=== PATIENT | female | born 1940 | race Caucasian/White ===

== ENCOUNTER 2020-11-25 08:16 | Emergency (ER) | payer MEDICARE, OTHER ==
[~2020-11-25] VITALS: Ht 154.9 cm; Wt 50.5 kg
[2020-11-25] MEDS ORDERED: oxymetazoline 15 ML nasal spray NS ONE (08:35)
[2020-11-25 08:43] VITALS: BP 153/87
== END 2020-11-25 10:53 | disposition home or self-care (01) ==
LOC: ER 08:17
DX: R04.0 Epistaxis (principal); I10 Essential (primary) hypertension; Z86.73 Personal history of transient ischemic attack (TIA), and cerebral infarction without residual deficits; Z88.8 Allergy status to other drugs, medicaments and biological substances
CPT/HCPCS: 99282

== ENCOUNTER 2024-06-25 02:21 | Emergency (ER) | payer MEDICARE, OTHER ==
[~2024-06-25] VITALS: Ht 154.9 cm; Wt 50.9 kg
[2024-06-25 04:20] LABS: BASOPHILS # (AUTO) 0.1 X10'3 (0-0.2); EOSINOPHILS # (AUTO) 0.3 X10'3 (0-0.9); HEMATOCRIT 41.4 % (35.0-45.0); HEMOGLOBIN 14.1 g/dl (12.0-16.0); LYMPHOCYTES # (AUTO) 2.1 X10'3 (1.1-4.8); LYMPHOCYTES % (AUTO) 24.8 % (21-51); MEAN CORPUSCULAR HEMOGLOBIN 30.8 PG (27.0-31.0); MEAN CORPUSCULAR VOLUME 90.8 FL (78-98); MEAN PLATELET VOLUME 7.8 FL (7.4-10.4); MONOCYTES # (AUTO) 0.8 X10'3 (0-0.9); MONOCYTES % (AUTO) 9.7 % (2-12); NEUTROPHILS # (AUTO) 5.3 X10'3 (1.8-7.7); NEUTROPHILS % (AUTO) 61.5 % (42-75); PLATELET COUNT 178 X10'3 (140-440); RED BLOOD COUNT 4.56 X10'6 (4.20-5.60); RED CELL DISTRIBUTION WIDTH 13.7 % (11.5-14.5); WHITE BLOOD COUNT 8.6 X10'3 (4.5-11.0)
[2024-06-25 04:24] LABS: ALBUMIN 3.7 G/DL (3.4-5.0); ANION GAP 7 (8-16); BLOOD UREA NITROGEN 21 MG/DL (7-18); BUN/CREATININE RATIO 35.6 (10.0-20.0); CALCIUM 9.5 MG/DL (8.5-10.1); CHLORIDE 106 MMOL/L (99-107); CREATININE 0.59 MG/DL (0.40-0.90); D-DIMER 1.56 MG/L FEU (0-0.50); GLUCOSE 96 MG/DL (70-104); POTASSIUM 3.9 MMOL/L (3.5-5.1); SODIUM 142 MMOL/L (135-145); TOTAL CARBON DIOXIDE 29.2 MMOL/L (24-32); eCRCL 53 ML/MIN; eGFR > 90 ML/MIN
[2024-06-25] MEDS ORDERED: CEPH-585 PO (06:07)
[2024-06-25 06:17] VITALS: BP 147/59; PULSE 60; RESP 16; TEMP 97.8; O2SAT 97
== END 2024-06-25 06:22 | disposition home or self-care (01) ==
LOC: ER 06:04
DX: M79.605 Pain in left leg (principal); Z88.5 Allergy status to narcotic agent
CPT/HCPCS: 36415; 80048; 84145; 85025; 85379; 93971; 99284

== ENCOUNTER 2025-03-12 06:16 | Emergency (ER) | payer MEDICARE, OTHER ==
[~2025-03-12] VITALS: Ht 154.9 cm; Wt 50.6 kg
--- NOTE | 2025-03-12 06:35 | Physician Documentation ---
History of Present Illness ~ Chief Complaint: Vomiting Stated Complaint: VOMITING Time Seen by MD: 06:34 HPI 85-year-old female who presents with right shoulder pain and an episode of vomiting She tells me that she had a fall couple of days ago, landing on her left side. She denies any significant injuries other than some mild bruising. Then yesterday she developed pain in her right shoulder. She states it is located in the lateral shoulder and it is hard to raise her arm up over her head. She can raise it up if she uses her left arm. She noticed some bruises over her shoulder. She does not remember falling on it. Last night she was extremely anxious about this. When she woke up this morning she tried to eat breakfast. She then had 1 episode of vomiting. Her states he was concerned she may be having a heart attack or a stroke. He gave her aspirin. Currently she denies any abdominal pain or nausea. She denies having any chest pain or shortness of breath. She denies having a new headache or other neurologic changes. Medication Reconciliation Allergies: Coded Allergies: tramadol (Unverified Allergy, Unknown, 03/12/25) Review of Systems Constitutional: Denies: fever Cardiovascular: Denies: chest pain Gastrointestinal: Reports: nausea, vomiting; Denies: abdominal pain Musculoskeletal: Reports: joint pain Physical Exam Vital Signs: Temperature: 97.8, Source: Temporal, Heart Rate: 73, Respiratory Rate: 18, BP: 156/55, Pulse Oximetry: 97, Weight: 50.600 Physical Exam General: This is a pleasant and mildly anxious appearing elderly woman, at bedside HEENT: Atraumatic, oropharynx is moist Heart: Regular rate and rhythm, no murmur, normal-appearing peripheral perfusion including normal left radial pulse Lungs: Clear breath sounds bilateral, normal work of breathing, normal oxygen saturation on room air Abdomen: Soft, nondistended, nontender all quadrants Extremities: Warm and well-perfused Right upper extremity: The patient has bruising over the anterior lateral shoulder and right bicep region. She has focal tenderness to palpation in the area of bruising only. Otherwise no focal bony point tenderness on palpation of the bones of the shoulder or elbow. She has pain with active shoulder raise, but I am able to raise her shoulder with passive movement without significant pain or limitation. Neuro: Alert and oriented Psychiatric: Appears mildly anxious but is cooperative with exam Progress Results/Orders Results/Orders Orders - ROLF GOLDSMITH MD Shoulder, Complete (Min 2 Vws) (03/12/25 06:24) Completed Orders - ROLF GOLDSMITH MD Cbc/Diff (03/12/25 06:24) Lipase (03/12/25 06:24) CMP (03/12/25 06:24) Shoulder, Complete (Min 2 Vws) (03/12/25 06:24) Hs Troponin I W Calculations (03/12/25 06:50) Lidocaine 5% Patch (Lidoderm 5% Patch) (03/12/25 06:50) Electrocardiogram (03/12/25 06:57) Medications Received in ER Medications (Trade) Dose Ordered Sig/Beck Route PRN Reason Start Time Stop Time Status Last Admin Dose Admin (Lidoderm 5% Patch) 1 patch ONCE ONCE TP 03/12/25 06:50 03/12/25 06:51 DC 03/12/25 07:02 1 PATCH Vital Signs 03/12/25 03/12/25 03/12/25 03/12/25 06:22 07:03 07:45 09:06 Temp 97.8 97.8 Pulse 73 59 57 63 Resp 18 19 17 15 B/P (MAP) 156/55 144/68 (93) 130/65 (86) 132/66 Pulse Ox 97 94 94 95 O2 Flow Rate 0 0 Laboratory Tests Test 03/12/25 07:05 White Blood Count 10.5 Red Blood Count 4.24 Hemoglobin 12.7 Hematocrit 37.5 Mean Corpuscular Volume 88.6 Mean Corpuscular Hemoglobin 30.0 Mean Corpuscular Hemoglobin Concent 33.9 Red Cell Distribution Width 13.8 Platelet Count 183 Mean Platelet Volume 7.9 Neutrophils (%) (Auto) 76.5 H Lymphocytes (%) (Auto) 11.3 L Monocytes (%) (Auto) 9.8 Eosinophils (%) (Auto) 1.7 Basophils (%) (Auto) 0.7 Neutrophils # (Auto) 8.0 H Lymphocytes # (Auto) 1.2 Monocytes # (Auto) 1.0 H Eosinophils # (Auto) 0.2 Basophils # (Auto) 0.1 CBC Comment Sodium Level 137 Potassium Level 3.5 Chloride Level 103 Carbon Dioxide Level 28.4 Anion Gap 6 L Blood Urea Nitrogen 14 Creatinine 0.60 Estimated GFR/1.73 m2 > 90 BUN/Creatinine Ratio 23.3 H Glucose Level 110 H Calcium Level 9.2 Total Bilirubin 1.3 H Aspartate Amino Transf (AST/SGOT) 20 Alanine Aminotransferase (ALT/SGPT) 18 Alkaline Phosphatase 88 Troponin I High Sensitivity 10 Total Protein 7.1 Albumin 3.2 L Globulin 3.9 Albumin/Globulin Ratio 0.8 L Lipase 30 Chemistry Comments EKG/XRAY/CT/US/VASC/MRI EKG : Additional Comment I personally interpreted the EKG and this shows: Sinus rhythm, rate 60, QTC 450, no STEMI or significant ischemic changes Bone/Soft Tissue X-Ray (Ext.) : Additional Comment I personally interpreted the x-ray, and it shows: No fracture or dislocation to the shoulder, no clavicle fracture Medical Decision Making Diff Dx GI Bleed:Consideration: Unlikely: AE fistula, Angiodysplasia, Bleeding diathesis, Blood loss anemia, Carcinoma, Diverticulosis, Diverticulitis, Esophageal varicies, Esophagitis, Gastritis, Gastroenteritis, Inflammatory BD, Suzi-Collins syndrome, Meckel's diverticulum, PUD, Other Diff Dx Pain:Considerations: Include: Angina/SC, Bowel obstruction Diff Dx N/V/D:Considerations: Include: Dehydration, Electrolyte imbalance, Food poisoning, Gastroenteritis Diff Dx Rectal:Considerations: Unlikely: Fissure, Fistula, Foreign body, Impaction, Perirectal abscess, Rectal prolapse, Subcutaneous abscess, Thrombosed hemorrhoid, Ulcer, UTI, Other Additional Comments The patient presents with bruising and pain to her right shoulder after a fall a couple of days ago, as well as 1 episode of vomiting. Here in the ED, she has findings consistent with bruising to her arm. She has a benign abdominal exam. No infectious symptoms. She already took aspirin, and can not take Tylenol. She was given a lidocaine patch and ice. X-ray of the shoulder shows no fractu re. Labs were unremarkable, no evidence to suggest heart attack, stroke or other dangerous process. While observed here she had no further vomiting or other symptoms. Overall, her presentation seems likely triggered by stress related to the pain and bruising of her shoulder. She will be discharged with symptomatic treatment and return precautions. Departure Time of Disposition: 08:52 Disposition: 01 HOME / SELF CARE / HOMELESS Impression: Primary Impression: Contusion, shoulder /upper arm Additional Impression: Vomiting Condition: Improved Discharge Instructions: Contusion Referrals: NO PRIMARY CARE PROVIDER (PCP) Education Educated: Patient, Family Educated regarding: diagnosis, treatment, need for follow up Signature Scribe Signature: na Attestation: ROLF Hand MD Mar 12, 2025 06:35
--- NOTE | 2025-03-12 06:52 | RADIOLOGY REPORT ---
PROCEDURE: Right shoulder radiographs. INDICATION: Shoulder Pain RT. TECHNIQUE: 2 views of the right shoulder were obtained. COMPARISON: None FINDINGS: There is no evidence of fracture or dislocation. Acromioclavicular joint space is narrowed. Glenohumeral joint space is also narrowed. IMPRESSION: 1. Degenerative changes of the right shoulder without acute osseous abnormality.
[2025-03-12 07:25] LABS: MEAN PLATELET VOLUME 7.9 FL (7.4-10.4); RED CELL DISTRIBUTION WIDTH 13.8 % (11.5-14.5)
[2025-03-12 07:38] LABS: CREATININE 0.60 MG/DL (0.40-0.90); TOTAL CARBON DIOXIDE 28.4 MMOL/L (24-32); eCRCL 51 ML/MIN; eGFR > 90 ML/MIN
[2025-03-12 07:45] VITALS: TEMP 97.8
--- NOTE | 2025-03-12 08:22 | ELECTROCARDIOGRAPH REPORT ---
[facility] Test Date: 2025-03-12 Test Time: 07:23:57 Pat Name: CHRISTINA MCINTOSH Department: EMERGENCY ROOM Room: Gender: F [employer] Teacher: : 1940 Requested By: ROLF GOLDSMITH Order Number: [id number] Reading MD: Measurements Intervals [place] Rate: 60 P: 24 LA: 159 QRS: 32 QRSD: 113 T: 111 QT: 450 QTc: 450 Interpretive Statements Sinus rhythm Borderline intraventricular conduction delay Borderline repol abnrm, anterolateral leads Please click the below link to view image of tracing.
[2025-03-12 09:06] VITALS: BP 132/66; PULSE 63; RESP 15; O2SAT 95
== END 2025-03-12 09:09 | disposition home or self-care (01) ==
LOC: ER 06:17
DX: S40.011A Contusion of right shoulder, initial encounter (principal); R11.10 Vomiting, unspecified; Z88.5 Allergy status to narcotic agent; X58.XXXA Exposure to other specified factors, initial encounter; Y93.89 Activity, other specified; Y92.89 Other specified places as the place of occurrence of the external cause; Y99.8 Other external cause status
CPT/HCPCS: 36415; 73030; 80053; 83690; 84484; 85025; 93005; 99285